=== PATIENT | male | born 1960 | race Caucasian/White ===

== ENCOUNTER 2023-06-01 05:35 | Emergency (ER) | payer OTHER, SELFPAY ==
[2023-06-01 05:36] VITALS: BMI 32.2
[2023-06-01 05:37] VITALS: BP 154/100
[2023-06-01 06:07] VITALS: BP 150/100
--- NOTE | 2023-06-01 06:32 | ED.GENMED ---
History of Present Illness
General
Chief Complaint: Musculo-Skeletal Complaint
Source: patient
Exam Limitations: none
Time Seen by Provider: 06/01/23 06:17
Nursing documentation reviewed up to this point in time: agreed with
Travel History
Have you had any contact with someone who has COVID-19?: No
Do you have any symptoms of coronavirus? Fever > 100 degrees, chills, cough, shortness of breath, sore throat, loss of taste or smell, muscle aches, or headache?: No
History of Present Illness
History of Present Illness:
63-year-old male with past medical history of hypertension, hyperlipidemia, diabetes, gout who presents to the emergency department for evaluation of right knee pain. Patient reports onset of symptoms Saturday morning and have been constant and
worsening since that time. He reports pain and swelling to right knee. Range of motion limited due to pain. He denies any trauma or injury. He says that he has been dealing with 'gout flare' in both of his big toes left greater than right and
had been taking colchicine for about 2 months until last week. Denies any other complaints including chest pain, shortness of breath. Denies fevers or chills. Denies similar symptoms in the past. He did have prior quadriceps tendon surgery in
the right knee 15 years ago.
Review of Systems
Review of Systems
All Other Systems: ROS reviewed and negative except as documented in HPI and ROS
Constitutional: Denies fever or chills
EENT: Denies sore throat or runny nose
Respiratory: Denies cough or trouble breathing
Cardiac: Denies chest pain
ABD/GI: Denies abdominal pain, nausea or vomiting
: Denies flank pain
Musculoskeletal: Reports joint pain; Denies neck pain or back pain
Neurological: Denies headache, weakness or numbness
Phy Exam
Physical Exam
Physical Exam:
General: Awake, alert, oriented x3; no acute distress
Head: Normocephalic, atraumatic
Eyes: Conjunctiva normal
Throat: Airway intact, handling secretions
Neck: Trachea midline
Lungs: Breathing comfortably no distress
Heart: Regular rate
Abd: Soft, non distended, nontender
Neuro: Cranial nerves grossly intact, speech fluid
Skin: no rash
Extremities: Patient has significant joint effusion in the right knee with tenderness along the medial and lateral joint line; he has range of motion to approximately 20 degrees, further range of motion limited by pain; there is no significant
erythema of the right knee but it is slightly warm to the touch; no edema in the right lower leg, good strong right DP pulse; there is no erythema or swelling of the great toes (patient reports recent gout flares); rest of extremities unremarkable
Scores
Heart Failure Risk
Heart Failure Risk Score: Not Applicable
Heart Score for Chest Pain Patients
STEMI patient?: Not applicable
Withdrawal Assessment of Alcohol
Withdrawal Assessment Completed?: Not applicable
Course
Orders/Labs/Results
Orders:
Orders
06/01/23 06:29
CR Knee- Right 4 Or More View* Urgent
Comment:
Reason For Exam: right knee pain
06/01/23 06:30
Ketorolac [Toradol] 15 mg IV NOW STA
06/01/23 06:43
CRP [C-Reactive Protein] Urgent
Complete Blood Count/With Diff Urgent
Comprehensive Metabolic Panel Urgent
ESR [Erythrocyte Sed Rate] Urgent
Lyme Progressive Urgent
06/01/23 07:23
Body Fluid Cell Count Urgent
What is the Body Fluid: joint
Date Specimen was Collected: 06/01/23
Time Specimen was Collected: 07:22
Comment: with DIFF
Body Fluid Crystals Urgent
What is the Body Fluid: joint
Date Specimen was Collected: 06/01/23
Time Specimen was Collected: 07:22
Body Fluid Glucose Urgent
Fluid Source: Other
Date Specimen was Collected: 06/01/23
Time Specimen was Collected: 07:22
06/01/23 07:57
Fluid Culture with Gram Stain Urgent
LUCAS Source: Joint Fluid
Specimen Description:
Date Specimen was Collected: 06/01/23
Time Specimen was Collected: 07:
Gram Stain Urgent
LUCAS Source: Joint
Specimen Description:
Date Specimen was Collected: 06/01/23
Time Specimen was Collected: :
Abnormal Lab Results
06/01/23
06:43
Abs Immat Gran (auto) 0.1 H 10^3/uL
(0-0.05)
Absolute Neuts (auto) 7.1 H 10^3/uL
(1.4-6.5)
Absolute Monos (auto) 1.2 H 10^3/uL
(0.1-0.6)
Immature Gran % 0.7 H %
(0-0.5)
Lymphocytes % 17.2 L %
(20.5-51.1)
Monocytes % 11.5 H %
(1.7-9.3)
BUN 24 H mg/dl
(9-20)
Glucose 209 H mg/dl
(70-99)
ALT 65 H U/L
(0-50)
C-Reactive Protein 40.70 H mg/L
(0.0-10.00)
06/01/23 06:43
06/01/23 06:43
Vital Signs
Initial and Last Documented VS:
Initial Vital Signs
Pulse Resp BP Pulse Ox
94 18 154/100 96
06/01/23 05:37 06/01/23 05:37 06/01/23 05:37 06/01/23 05:37
Last Documented Vital Signs
Pulse Resp BP Pulse Ox
77 20 129/75 98
06/01/23 08:00 06/01/23 08:00 06/01/23 08:00 06/01/23 08:00
Procedures
Incision/Drainage/Joint Aspiration
Right Knee:
Anethesia: 1% Lidocaine with Epi
Preparation: cleaned with Betadine
Type of procedure: aspiration
Nature of site: other (Joint effusion)
How much fluid was obtained?: number in mls (20)
Fluid description: blood tinged and yellowish
Treatment: bandaid applied
MDM/Problems Addressed
Differential Diagnosis Includes:
Gout/inflammatory arthritis, septic arthritis, traumatic knee injury
MDM/Problems Addressed:
63-year-old male presents for evaluation of atraumatic right knee pain and swelling since Saturday. Hypertensive otherwise normal vitals. Exam as above. Plan to check labs including CBC and CMP, ESR/CRP. Check an x-ray of the knee. Will perform
arthrocentesis and send joint fluid analysis. Will treat pain. Monitor closely reassess after the above.
Labs reviewed: CBC unremarkable, CMP shows hyperglycemia to 209�nonfasting in the setting of no diabetes. His CRP was elevated ESR normal. Initial joint studies show WBC of 1978 not consistent with septic arthritis but rather more likely
inflammatory arthritis--clincially suspect gout given history but differential would include autoimmune arthritis or osteoarthritis with effusion. Crystal analysis pending. His x-ray showed large amount of soft tissue swelling around the
quadriceps tendon and moderate joint effusion�there is a question of quadriceps rupture on radiology report which I think is very unlikely given his clinical exam and lack of traumatic mechanism; he had a prior repair of his quadriceps tendon I
think it is more likely a tendinosis accounting for this soft tissue swelling and I think his joint effusion and joint pain are more likely from an acute gout flare. I had a long discussion with the patient: he has had flares of each great toe over
the past 2 months�he says that he was on colchicine for a month and then went 3 weeks off of it before having a flare of his other toe and he was on colchicine for another month. He says that his doctor was hesitant to prescribe further given how
long he has been taking it. I tend to agree with avoiding prolonged use of colchicine for gout, instructed patient about potentially starting allopurinol he will discuss with his primary doctor; in the meantime I wonder if a short course of steroids
may help him get through acute flare in his right knee. He does have some hyperglycemia in setting of known diabetes he says he can watch his blood sugars very closely advised him to watch his diet avoid simple carbohydrates; advised that if his
sugars are running high discontinue steroids. Will avoid a prolonged taper in favor of a short burst to avoid issues with hyperglycemia. He indicated understanding. Spoke about return precautions all questions answered.
Chronic conditions affecting care:
Gout
Acute Exacerbation and/or Progression of Chronic Illness:
Acute hypertensive likely related to pain will treat pain but no indication for emergent antihypertensive treatment at present
Acute Exacerbation and/or Progression of Chronic Illness: HTN
*Radiology
Radiology exam reviewed: preliminary read by ED provider
*Pulse Oximetry
Patient hypoxic: no
*Critical Care Note
Total Time (30-74mins, 75-104mins- exclusive of procedures): Not Applicable
Data Reviewed
Source: patient
ED Attending Note
-
Portions of this chart may have been created with voice recognition software.� Occasional wrong word or��sound alike� substitutions may have occurred due to the inherent limitations of voice recognition software.
Discharge Plan
Departure
Patient Disposition: Home (Routine Discharge)
Date of Disposition: 06/01/23
Time of Disposition: 10:46
Patient with high blood pressure during this ER visit?: Yes
Discharge Problem:
Gout flare, Patellar tendinosis
Instructions: Gout ED
Prescriptions:
New
prednisone 50 mg tablet
50 mg PO DAILY Qty: 4 0RF
No Action
prednisone 20 mg tablet
60 mg PO DAILY Qty: 18 0RF
Rx Instructions:
Once daily as follows: 60mg po qd x 3d, then 40mg po qd x 3 days, then 20mg po qd x 3d
Referrals:
Parviz Chase MD [Active] - As needed
Fer Paz MD [Family Provider] - Follow up in 5-7 days
Activity Restrictions/Additional Instructions:
Thank you for visiting the Emergency Department at [facility].
1. Please schedule a follow up appointment as directed. Call first thing tomorrow morning to make an appointment.
2. If indicated, please take your medications as instructed and indicated on discharge paperwork.
3. If any of your symptoms do not improve, or persist, or become more severe within 6-12 hours, please return to the emergency department for further care.
4. Please return to the emergency department if you develop a headache, neck pain/stiffness, fever greater than 100.4F, chest pain, shortness of breath, persistent nausea, vomiting, slurred speech, difficulty walking, numbness/tingling, weakness,
signs of infection or any other symptoms that are worrisome to you.
Please call [phone] if you have any questions.
Interventions
Interventions:
*Risk Screen - Suicide Last Done: 06/01/23 05:37
*General Assessment Last Done: 06/01/23 05:37
*Neglect/Abuse Screening Last Done: 06/01/23 05:37
ED- Fall Risk Assessment Last Done: 06/01/23 05:37
*ED COVID-19 Vaccine History Last Done: 06/01/23 05:37
ED-Musculoskeletal Assessment Last Done: 06/01/23 06:09
[2023-06-01 06:52] LABS: % Basophils 0.7 % (0-2); % Eosinophils 3.9 % (0-6); % Immature Granulocytes 0.7 % (0-0.5); % Lymphocytes 17.2 % (20.5-51.1); % Monocytes 11.5 % (1.7-9.3); Absolute Basophils 0.1 10^3/uL (0-0.2); Absolute Eosinophils 0.4 10^3/uL (0-0.7); Absolute Immature Granulocytes 0.1 10^3/uL (0-0.05); Absolute Lymphocytes 1.9 10^3/uL (1.2-3.4); Absolute Monocytes 1.2 10^3/uL (0.1-0.6); Absolute Neutrophils 7.1 10^3/uL (1.4-6.5); Hematocrit 42.2 % (39.0-52.0); Hemoglobin 14.6 g/dL (13.0-18.0); Mean Corp Hgb Conc. 34.6 g/dL (33.0-37.0); Mean Corpuscular Hgb 29.3 pg (27.0-31.0); Mean Corpuscular Volume 84.7 fL (80.0-94.0); Mean Platelet Volume 9.5 fL (7.4-10.4); Nucleated Red Blood Cells % 0 % (-); Platelet Count 265 10^3/uL (130-400); Red Blood Cell Count 4.98 10^6/uL (4.70-6.10); Red Cell Dist. Width 12.6 % (11.5-14.5); White Blood Cell Count 10.8 10^3/uL (4.8-10.8)
[2023-06-01 07:06] LABS: ALT (SGPT) 65 U/L (0-50); AST (SGOT) 35 U/L (17-59); Albumin 4.2 g/dl (3.5-5.0); Alkaline Phosphatase 125 U/L (38-126); Blood Urea Nitrogen 24 mg/dl (9-20); Calcium 9.6 mg/dl (8.4-10.2); Carbon Dioxide 24 mmol/L (22-30); Chloride 105 mmol/L (98-107); Estimated Creatinine Clearance 81 ml/min; Glucose 209 mg/dl (70-99); Potassium 3.5 mmol/L (3.5-5.1); Sodium 138 mmol/L (135-145); Total Bilirubin 0.6 mg/dl (0.2-1.3); Total Protein 6.8 g/dl (6.3-8.2); eGFR > 60.00
[2023-06-01] MEDS: TORADOL 15 MG IV (07:20)
[2023-06-01 08:00] VITALS: BP 129/75
[2023-06-01 08:51] LABS: Body Fluid Mononuclear 57.5 %; Body Fluid Polymorphonuclear 42.5 %; Body Fluid WBC 1978 /CUMM
[2023-06-01 08:58] LABS: Body Fluid Second Tech BP
[2023-06-01 10:11] LABS: Erythrocyte Sed Rate 3 mm/hour (0-20)
[2023-06-01 10:44] VITALS: BP 131/85
[2023-06-01] MEDS: DELTASONE 50 MG PO (10:59)
[2023-06-01 11:01] LABS: Body Fluid Glucose 225 mg/dl
[2023-06-03 16:19] LABS: Lyme Antibody Screen, EIA Negative (Negative)
== END 2023-06-01 11:11 | disposition home or self-care (01) ==
LOC: EMR 05:35
PROVIDERS: EMERGENCY PHYSICIAN Emergency Medicine; FAMILY PHYSICIAN Family Medicine
DX: M10.9 Gout, unspecified (principal); M25.561 Pain in right knee; M25.461 Effusion, right knee; M65.9 Synovitis and tenosynovitis, unspecified; I10 Essential (primary) hypertension; E78.5 Hyperlipidemia, unspecified; E11.9 Type 2 diabetes mellitus without complications
CPT/HCPCS: 99284; 20610; 96374; 73564; 80053; 82945; 85025; 85652; 86140; 86618; 87015; 87070; 87205; 89051; 89060

== ENCOUNTER → 2024-01-14 14:50 | Outpatient (REF) | payer OTHER, SELFPAY | LOC: RCS 14:50 | PROVIDERS: ATTENDING PHYSICIAN Internal Medicine Cardiovascular Disease; FAMILY PHYSICIAN Family Medicine | DX: I10 Essential (primary) hypertension (principal); E08.40 Diabetes mellitus due to underlying condition with diabetic neuropathy, unspecified; E78.2 Mixed hyperlipidemia | CPT/HCPCS: 93017 ==

== ENCOUNTER → 2024-01-15 14:58 | Outpatient (REF) | payer OTHER, SELFPAY | LOC: RCS 14:58 | PROVIDERS: ATTENDING PHYSICIAN Internal Medicine Cardiovascular Disease; FAMILY PHYSICIAN Family Medicine | DX: I10 Essential (primary) hypertension (principal); E08.40 Diabetes mellitus due to underlying condition with diabetic neuropathy, unspecified; E78.2 Mixed hyperlipidemia | CPT/HCPCS: 93306 ==